=== PATIENT | female | born 1985 | race Caucasian/White ===

== ENCOUNTER 2017-07-11 04:15 | Emergency (ER) | payer BC ==
[~2017-07-11] VITALS: Ht 172.7 cm; Wt 46.7 kg
[~2017-07-11 04:15] MED LIST: MOTRIN 600600 MG/TAB PO; MOTRIN 800800 MG/TAB PO; NO HOME MEDICATIONS; NORCO 325 MG-51 TAB PO; ONE DAILY1 TA2 PO; PRENATAL1 TA1 PO; PROAIR HFA0.09 MG/AC IH; TYLENOL 325MG325 MG PO; TYLENOL/CODEINE1 ML PO; VALIUM 5MG T5 MG/TAB PO; ZITHROMAX 250M250 MG PO; ZOFRAN 4MG T4 MG/TAB PO; ZOFRAN ODT4 MG PO
[2017-07-11 04:17] VITALS: BP 126/76; TEMP 98.2
[2017-07-11 05:01] LABS: PH 6 (5-8); URINE APPEARANCE Cloudy; URINE COLOR Red
[2017-07-11 05:02] LABS: URINE BILIRUBIN Negative (NEGATIVE); URINE BLOOD 3+ (NEGATIVE); URINE GLUCOSE Negative (NEGATIVE); URINE KETONE Negative (NEGATIVE); URINE UROBILINOGEN Negative (NEGATIVE)
[2017-07-11 05:11] LABS: URINE RBC >50 /hpf
[2017-07-11] MEDS ORDERED: MACROBID 1100 MG/CAP PO (05:20)
[2017-07-11] MEDS ORDERED: PYRIDIUM200 M1 PO (05:20)
[2017-07-11 05:36] VITALS: PULSE 70
== END 2017-07-11 05:35 | disposition home or self-care (01) ==
LOC: COL.ER 04:15
PROVIDERS: Emergency Medicine
DX: N39.0 Urinary tract infection, site not specified (principal); R31.9 Hematuria, unspecified